=== PATIENT | male | born 1955 | race African-American/Black ===

== ENCOUNTER 2020-11-16 14:26 | Inpatient (IN) | payer OTHER ==
[2020-11-16 15:57] VITALS: BMI 29.4
[2020-11-16] MEDS ORDERED: LOPERAMIDE HCL 2 MG CAPSULE PO PRN (17:45)
[2020-11-16] MEDS ORDERED: ACETAMINOPHEN 325 MG TABLET (FP) PO PRN (17:45)
[2020-11-16] MEDS ORDERED: guaiFENesin 200 MG/10 ML 10 ML UNIT-DOSE CUPS PO PRN (17:45)
[2020-11-16] MEDS ORDERED: MAG HYDROX/AL HYDROX/SIMETH 30 ML UNIT-DOSE CUP PO PRN (17:45)
[2020-11-16] MEDS ORDERED: MAGNESIUM CITRATE 300 ML BOTTLE PO PRN (17:45)
[2020-11-16] MEDS ORDERED: NICOTINE POLACRILEX 2 MG GUM BC PRN (17:45)
[2020-11-16] MEDS ORDERED: MAGNESIUM HYDROX 2400MG/30ML ORAL SUSPENSION 30 ML CUP PO PRN (17:45)
[2020-11-16] MEDS ORDERED: IBUPROFEN 400 MG TABLET (FP) PO PRN (17:45)
[2020-11-16] MEDS ORDERED: hydrOXYzine PAMOATE 25 MG CAPSULE (FP) PO SCH (18:00)
[2020-11-16] MEDS: ATORVASTATIN CA 40 MG TABLET (FP) PO SCH (21:58)
[2020-11-16] MEDS: THIAMINE HCL 100 MG TABLET (FP) PO SCH (21:59)
[2020-11-16] MEDS: MELATONIN 5 MG TABLETS PO SCH (21:59)
[2020-11-17] MEDS: WARFARIN NA 3 MG TABLET PO SCH ×2 (01:11→18:34)
[2020-11-17] MEDS: SACUBITRIL/VALSARTAN 49 MG-51 MG TABLET PO SCH ×3 (01:12→21:11)
[2020-11-17] MEDS ORDERED: NICOTINE 7 MG/24 HOURS TOPICAL PATCH TD SCH (10:00)
[2020-11-17] MEDS: SPIRONOLACTONE 25 MG TABLET PO SCH (10:20)
[2020-11-17] MEDS: PRENATAL VITAMINS W/ FOLIC ACID TABLET (FP) PO SCH (10:20)
[2020-11-17] MEDS: CHOLECALCIFEROL (VIT D3) 1,000 UNIT (25 MCG) TABLET PO SCH (10:21)
[2020-11-17 11:26] LABS: HEMATOCRIT 45.7 % (35.4-49); HEMOGLOBIN 15.3 GM/dL (11.7-16.9); MCH 30.4 pg (25.7-33.7); MCHC 33.5 g/dl (32.0-35.9); MEAN CELL VOLUME 90.8 fl (80-96); MEAN PLT VOLUME 10.1 fl (7.5-11.1); PLATELET COUNT 134 K/MM3 (134-434); RBC 5.03 M/mm3 (4.00-5.60); RDW 14.3 % (11.9-15.9); WHITE BLOOD COUNT 4.2 K/mm3 (4.0-10.0)
[2020-11-17 11:30] LABS: PH,URINE 5.5 (5.0-8.0); URINE APPEARANCE CLEAR; URINE BILIRUBIN NEGATIVE (NEGATIVE); URINE COLOR YELLOW; URINE GLUCOSE (UA) NEGATIVE (NEGATIVE); URINE KETONE TRACE (NEGATIVE); URINE LEUK ESTERASE NEGATIVE (NEGATIVE); URINE NITRITE NEGATIVE (NEGATIVE); URINE PROTEIN NEGATIVE (NEGATIVE)
[2020-11-17 11:33] LABS: INR 1.39 (0.83-1.09); PROTHROMBIN TIME (PATIENT) 16.7 SEC (9.7-13.0)
[2020-11-17 11:45] LABS: ALBUMIN 3.9 g/dl (3.4-5.0); CALCIUM 9.4 mg/dL (8.5-10.1)
[2020-11-17 11:48] LABS: CREATININE 1.5 mg/dL (0.55-1.3)
[2020-11-17 11:50] LABS: BILIRUBIN,TOTAL 1.3 mg/dL (0.2-1); TOT PROT 7.2 g/dl (6.4-8.2)
[2020-11-17] MEDS: ATORVASTATIN CA 40 MG TABLET (FP) PO SCH (21:11)
[2020-11-17] MEDS: THIAMINE HCL 100 MG TABLET (FP) PO SCH (21:11)
[2020-11-17] MEDS: METHOCARBAMOL 500 MG TABLET PO SCH (21:11)
[2020-11-17] MEDS: MELATONIN 5 MG TABLETS PO SCH (21:12)
[2020-11-18] MEDS: PRENATAL VITAMINS W/ FOLIC ACID TABLET (FP) PO SCH (10:09)
[2020-11-18] MEDS: CHOLECALCIFEROL (VIT D3) 1,000 UNIT (25 MCG) TABLET PO SCH (10:09)
[2020-11-18] MEDS: METHOCARBAMOL 500 MG TABLET PO SCH ×2 (10:10→22:42)
[2020-11-18] MEDS: SPIRONOLACTONE 25 MG TABLET PO SCH (10:10)
[2020-11-18] MEDS: SACUBITRIL/VALSARTAN 49 MG-51 MG TABLET PO SCH ×2 (10:10→22:44)
[2020-11-18 11:08] LABS: INR 1.99 (0.83-1.09)
[2020-11-18] MEDS ORDERED: PT OWN MED DRAWER 7, Y5N ONE ×2 (17:18→20:45)
[2020-11-18] MEDS: WARFARIN NA 3 MG TABLET PO SCH (17:42)
[2020-11-18] MEDS: ATORVASTATIN CA 40 MG TABLET (FP) PO SCH (22:42)
[2020-11-18] MEDS: THIAMINE HCL 100 MG TABLET (FP) PO SCH (22:42)
[2020-11-18] MEDS: MELATONIN 5 MG TABLETS PO SCH (23:05)
[2020-11-19] MEDS: METHOCARBAMOL 500 MG TABLET PO SCH ×2 (09:56→21:32)
[2020-11-19] MEDS: SPIRONOLACTONE 25 MG TABLET PO SCH (09:56)
[2020-11-19] MEDS: PRENATAL VITAMINS W/ FOLIC ACID TABLET (FP) PO SCH (09:56)
[2020-11-19] MEDS: SACUBITRIL/VALSARTAN 49 MG-51 MG TABLET PO SCH ×2 (09:56→21:31)
[2020-11-19] MEDS: CHOLECALCIFEROL (VIT D3) 1,000 UNIT (25 MCG) TABLET PO SCH (09:57)
[2020-11-19] MEDS ORDERED: PT OWN MED DRAWER 7, Y5N ONE ×2 (16:43→18:51)
[2020-11-19] MEDS: WARFARIN NA 3 MG TABLET PO SCH (17:06)
[2020-11-19] MEDS: ATORVASTATIN CA 40 MG TABLET (FP) PO SCH (21:31)
[2020-11-19] MEDS: THIAMINE HCL 100 MG TABLET (FP) PO SCH (21:31)
[2020-11-19] MEDS: MELATONIN 5 MG TABLETS PO SCH (21:31)
[2020-11-20 06:10] LABS: SARS-CoV-2 NAA Not Detected (Not Detected)
[2020-11-20] MEDS ORDERED: PT OWN MED DRAWER 7, Y5N ONE (08:44)
[2020-11-20] MEDS: PRENATAL VITAMINS W/ FOLIC ACID TABLET (FP) PO SCH (09:44)
[2020-11-20] MEDS: SACUBITRIL/VALSARTAN 49 MG-51 MG TABLET PO SCH ×2 (09:45→21:24)
[2020-11-20] MEDS: SPIRONOLACTONE 25 MG TABLET PO SCH (09:45)
[2020-11-20] MEDS: METHOCARBAMOL 500 MG TABLET PO SCH ×2 (09:45→21:11)
[2020-11-20] MEDS: CHOLECALCIFEROL (VIT D3) 1,000 UNIT (25 MCG) TABLET PO SCH (09:46)
[2020-11-20] MEDS: WARFARIN NA 3 MG TABLET PO SCH (17:35)
[2020-11-20] MEDS: THIAMINE HCL 100 MG TABLET (FP) PO SCH (21:10)
[2020-11-20] MEDS: MELATONIN 5 MG TABLETS PO SCH (21:10)
[2020-11-20] MEDS: ATORVASTATIN CA 40 MG TABLET (FP) PO SCH (21:11)
[2020-11-20] MEDS: P-EPHED 60MG/TRIPROLIDI 2.5MG TABLET PO PRN (21:12)
[2020-11-21] MEDS: CHOLECALCIFEROL (VIT D3) 1,000 UNIT (25 MCG) TABLET PO SCH (09:52)
[2020-11-21] MEDS: SPIRONOLACTONE 25 MG TABLET PO SCH (09:52)
[2020-11-21] MEDS: PRENATAL VITAMINS W/ FOLIC ACID TABLET (FP) PO SCH (09:52)
[2020-11-21] MEDS: METHOCARBAMOL 500 MG TABLET PO SCH ×2 (09:52→21:21)
[2020-11-21] MEDS: SACUBITRIL/VALSARTAN 49 MG-51 MG TABLET PO SCH ×2 (09:52→21:19)
[2020-11-21] MEDS: P-EPHED 60MG/TRIPROLIDI 2.5MG TABLET PO PRN ×2 (09:53→21:20)
[2020-11-21] MEDS ORDERED: PT OWN MED DRAWER 7, Y5N ONE (17:25)
[2020-11-21] MEDS: WARFARIN NA 3 MG TABLET PO SCH (17:51)
[2020-11-21] MEDS: MELATONIN 5 MG TABLETS PO SCH (21:19)
[2020-11-21] MEDS: THIAMINE HCL 100 MG TABLET (FP) PO SCH (21:19)
[2020-11-21] MEDS: ATORVASTATIN CA 40 MG TABLET (FP) PO SCH (21:20)
[2020-11-22] MEDS: SACUBITRIL/VALSARTAN 49 MG-51 MG TABLET PO SCH ×2 (09:58→21:23)
[2020-11-22] MEDS: SPIRONOLACTONE 25 MG TABLET PO SCH (09:59)
[2020-11-22] MEDS: CHOLECALCIFEROL (VIT D3) 1,000 UNIT (25 MCG) TABLET PO SCH (09:59)
[2020-11-22] MEDS: METHOCARBAMOL 500 MG TABLET PO SCH ×2 (10:00→21:24)
[2020-11-22] MEDS: PRENATAL VITAMINS W/ FOLIC ACID TABLET (FP) PO SCH (10:00)
[2020-11-22] MEDS ORDERED: PT OWN MED DRAWER 7, Y5N ONE ×2 (16:18→21:24)
[2020-11-22] MEDS: WARFARIN NA 3 MG TABLET PO SCH (17:29)
[2020-11-22] MEDS: THIAMINE HCL 100 MG TABLET (FP) PO SCH (21:22)
[2020-11-22] MEDS: ATORVASTATIN CA 40 MG TABLET (FP) PO SCH (21:22)
[2020-11-22] MEDS: MELATONIN 5 MG TABLETS PO SCH (21:22)
[2020-11-23] MEDS: SACUBITRIL/VALSARTAN 49 MG-51 MG TABLET PO SCH ×2 (09:54→21:20)
[2020-11-23] MEDS: PRENATAL VITAMINS W/ FOLIC ACID TABLET (FP) PO SCH (09:54)
[2020-11-23] MEDS: SPIRONOLACTONE 25 MG TABLET PO SCH (09:54)
[2020-11-23] MEDS: CHOLECALCIFEROL (VIT D3) 1,000 UNIT (25 MCG) TABLET PO SCH (09:54)
[2020-11-23] MEDS: METHOCARBAMOL 500 MG TABLET PO SCH ×2 (09:55→21:20)
[2020-11-23 11:08] LABS: INR 2.36 (0.83-1.09); PROTHROMBIN TIME (PATIENT) 27.9 SEC (9.7-13.0)
[2020-11-23] MEDS ORDERED: PT OWN MED DRAWER 7, Y5N ONE ×2 (16:57→19:07)
[2020-11-23] MEDS: WARFARIN NA 3 MG TABLET PO SCH (17:34)
[2020-11-23] MEDS: MELATONIN 5 MG TABLETS PO SCH (21:19)
[2020-11-23] MEDS: THIAMINE HCL 100 MG TABLET (FP) PO SCH (21:20)
[2020-11-23] MEDS: ATORVASTATIN CA 40 MG TABLET (FP) PO SCH (21:20)
[2020-11-23] MEDS: P-EPHED 60MG/TRIPROLIDI 2.5MG TABLET PO PRN (21:22)
[2020-11-24] MEDS ORDERED: PT OWN MED DRAWER 7, Y5N ONE ×2 (08:53→16:57)
[2020-11-24] MEDS: SACUBITRIL/VALSARTAN 49 MG-51 MG TABLET PO SCH ×2 (09:32→21:46)
[2020-11-24] MEDS: CHOLECALCIFEROL (VIT D3) 1,000 UNIT (25 MCG) TABLET PO SCH (09:32)
[2020-11-24] MEDS: SPIRONOLACTONE 25 MG TABLET PO SCH (09:33)
[2020-11-24] MEDS: METHOCARBAMOL 500 MG TABLET PO SCH (09:33)
[2020-11-24] MEDS: PRENATAL VITAMINS W/ FOLIC ACID TABLET (FP) PO SCH (10:07)
[2020-11-24] MEDS ORDERED: METHOCARBAMOL 500 MG TABLET PO PRN (11:57)
[2020-11-24] MEDS ORDERED: LORATADINE 10 MG TABLET PO ONE (15:08)
[2020-11-24] MEDS: WARFARIN NA 3 MG TABLET PO SCH (17:27)
[2020-11-24] MEDS: MELATONIN 5 MG TABLETS PO SCH (21:46)
[2020-11-24] MEDS: THIAMINE HCL 100 MG TABLET (FP) PO SCH (21:46)
[2020-11-24] MEDS: ATORVASTATIN CA 40 MG TABLET (FP) PO SCH (21:48)
[2020-11-25] MEDS ORDERED: PT OWN MED DRAWER 7, Y5N ONE (09:33)
[2020-11-25] MEDS: LORATADINE 10 MG TABLET PO SCH (09:46)
[2020-11-25] MEDS: SACUBITRIL/VALSARTAN 49 MG-51 MG TABLET PO SCH ×2 (09:46→22:22)
[2020-11-25] MEDS: SPIRONOLACTONE 25 MG TABLET PO SCH (09:47)
[2020-11-25] MEDS: CHOLECALCIFEROL (VIT D3) 1,000 UNIT (25 MCG) TABLET PO SCH (09:47)
[2020-11-25] MEDS: PRENATAL VITAMINS W/ FOLIC ACID TABLET (FP) PO SCH (09:47)
[2020-11-25] MEDS: WARFARIN NA 3 MG TABLET PO SCH (17:38)
[2020-11-25] MEDS: THIAMINE HCL 100 MG TABLET (FP) PO SCH (21:25)
[2020-11-25] MEDS: ATORVASTATIN CA 40 MG TABLET (FP) PO SCH (21:25)
[2020-11-25] MEDS: MELATONIN 5 MG TABLETS PO SCH (21:26)
[2020-11-26] MEDS ORDERED: PT OWN MED DRAWER 7, Y5N ONE ×2 (09:10→19:38)
[2020-11-26] MEDS: PRENATAL VITAMINS W/ FOLIC ACID TABLET (FP) PO SCH (09:49)
[2020-11-26] MEDS: SACUBITRIL/VALSARTAN 49 MG-51 MG TABLET PO SCH ×2 (09:49→21:09)
[2020-11-26] MEDS: CHOLECALCIFEROL (VIT D3) 1,000 UNIT (25 MCG) TABLET PO SCH (09:49)
[2020-11-26] MEDS: LORATADINE 10 MG TABLET PO SCH (09:49)
[2020-11-26] MEDS: SPIRONOLACTONE 25 MG TABLET PO SCH (09:50)
[2020-11-26] MEDS: ATORVASTATIN CA 40 MG TABLET (FP) PO SCH (21:09)
[2020-11-26] MEDS: MELATONIN 5 MG TABLETS PO SCH (21:09)
[2020-11-26] MEDS: THIAMINE HCL 100 MG TABLET (FP) PO SCH (21:09)
[2020-11-27] MEDS: SACUBITRIL/VALSARTAN 49 MG-51 MG TABLET PO SCH ×2 (10:19→21:38)
[2020-11-27] MEDS: CHOLECALCIFEROL (VIT D3) 1,000 UNIT (25 MCG) TABLET PO SCH (10:19)
[2020-11-27] MEDS: PRENATAL VITAMINS W/ FOLIC ACID TABLET (FP) PO SCH (10:19)
[2020-11-27] MEDS: SPIRONOLACTONE 25 MG TABLET PO SCH (10:20)
[2020-11-27] MEDS: LORATADINE 10 MG TABLET PO SCH (10:56)
[2020-11-27] MEDS ORDERED: PT OWN MED DRAWER 7, Y5N ONE (19:24)
[2020-11-27] MEDS: THIAMINE HCL 100 MG TABLET (FP) PO SCH (21:37)
[2020-11-27] MEDS: ATORVASTATIN CA 40 MG TABLET (FP) PO SCH (21:37)
[2020-11-27] MEDS: MELATONIN 5 MG TABLETS PO SCH (21:38)
[2020-11-28] MEDS: LORATADINE 10 MG TABLET PO SCH (10:03)
[2020-11-28] MEDS: CHOLECALCIFEROL (VIT D3) 1,000 UNIT (25 MCG) TABLET PO SCH (10:03)
[2020-11-28] MEDS: PRENATAL VITAMINS W/ FOLIC ACID TABLET (FP) PO SCH (10:03)
[2020-11-28] MEDS: SACUBITRIL/VALSARTAN 49 MG-51 MG TABLET PO SCH ×2 (10:03→21:13)
[2020-11-28] MEDS: SPIRONOLACTONE 25 MG TABLET PO SCH (12:45)
[2020-11-28] MEDS ORDERED: PT OWN MED DRAWER 7, Y5N ONE (19:30)
[2020-11-28] MEDS: THIAMINE HCL 100 MG TABLET (FP) PO SCH (21:12)
[2020-11-28] MEDS: ATORVASTATIN CA 40 MG TABLET (FP) PO SCH (21:12)
[2020-11-28] MEDS: MELATONIN 5 MG TABLETS PO SCH (21:15)
[2020-11-29 06:59] VITALS: BP 111/77; PULSE 66; TEMP 97.2
[2020-11-29] MEDS ORDERED: PT OWN MED DRAWER 7, Y5N ONE (08:49)
[2020-11-29] MEDS: CHOLECALCIFEROL (VIT D3) 1,000 UNIT (25 MCG) TABLET PO SCH (09:46)
[2020-11-29] MEDS: PRENATAL VITAMINS W/ FOLIC ACID TABLET (FP) PO SCH (09:46)
[2020-11-29] MEDS: SACUBITRIL/VALSARTAN 49 MG-51 MG TABLET PO SCH (09:46)
[2020-11-29] MEDS: LORATADINE 10 MG TABLET PO SCH (09:46)
[2020-11-29] MEDS: SPIRONOLACTONE 25 MG TABLET PO SCH (09:47)
[2020-11-29] MEDS ORDERED: WARFARIN NA 3 MG TABLET PO SCH (18:00)
== END 2020-11-29 10:00 | disposition home or self-care (01) | DRG 895 ==
LOC: YASAS 14:26 → Y5N 18:56
PROVIDERS: ADMIT Allergy & Immunology; ATTEND Allergy & Immunology
PROC: HZ42ZZZ Group Counseling for Substance Abuse Treatment, Cognitive-Behavioral (ICD-10-PCS; principal; 2020-11-16)
DX: F14.20 Cocaine dependence, uncomplicated (principal); I11.0 Hypertensive heart disease with heart failure; I50.9 Heart failure, unspecified; I48.91 Unspecified atrial fibrillation; I95.9 Hypotension, unspecified; E78.5 Hyperlipidemia, unspecified; M17.11 Unilateral primary osteoarthritis, right knee; J30.2 Other seasonal allergic rhinitis; R73.03 Prediabetes; Z86.73 Personal history of transient ischemic attack (TIA), and cerebral infarction without residual deficits
CPT/HCPCS: 36415; 80053; 81003; 82962; 85027; 85610; 86480; 86780; 93005; 93010; C9803; U0003; U0005